=== PATIENT | male | born 1970 | race Caucasian/White ===

== ENCOUNTER → 2017-02-20 | Emergency (ER) | payer BC ==
--- NOTE | 2017-02-20 22:25 | ED NURSING NOTES ---
Clinical Report - Nurses [facility] [address] [place] [address] 02/20/2017 21:29 Patient: YOLANDA OCONNELL TRIAGE Triage time 21:35. Acuity: LEVEL 3. --21:38 Lucy Ying 21:35 02/20/17. BP: 173/86. HR: 93. RR: 18. O2 saturation: 99%. Temp: 98.4 F. Pain level now: 03/05. --21:38 Lucy Ying Chief Complaint: SORE THROAT. --23:01 Damir Ying. Weight: 104.3 kg. Height/Length: 76 inches. BMI: 28. --21:38 Damir Ying. Medications ZyrTEC Allergy Childrens Oral. --21:37 Damir Ying. Allergies No Known Drug Allergy. --21:37 Damir Ying. History Arrived by private vehicle. Historian: patient. Accompanied by family. This started just prior to arrival. ( pt states he was eating meatloaf and felt it get stuck in his throat, pt states he threw up but still feels like it is stuck in his throat, pt states this has happened before). 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 PAST MEDICAL HX: Immunizations: up-to-date. SOCIAL HX: Never smoker. No alcohol use or drug use. No infectious disease exposure. SELF HARM ASSESSMENT: A self harm assessment was performed. The patient answered "no" to the question "Have you recently felt down, depressed, or hopeless?", "Have you noticed less interest or pleasure in doing things?", "Do you have thoughts of harming or killing yourself?", "Are you here because you tried to hurt yourself?", "Have you ever tried to hurt yourself before today?", "Have you recently had thoughts about harming or killing others?" and "Do you have any dangerous items in your possession?". FALL RISK ASSESSMENT: Fall risk assessment completed. No fall risk identified. NUTRITIONAL RISK ASSESSMENT: The nutritional risk assessment revealed no deficiencies. FUNCTIONAL ASSESSMENT: Functional assessment: no impairments noted. LEARNING NEEDS ASSESSMENT: The learning needs assessment revealed no barriers. SKIN INTEGRITY ASSESSMENT: Skin integrity risk assessment completed. No skin integrity risk identified. --21:38 Lucy Ying ADDITIONAL SURGERIES: no known surgeries. Interventions ID band on patient. To treatment room. --21:38 Lucy Ying PHYSICAL ASSESSMENT Ambulatory to room. GENERAL / NEURO / PSYCH: Alert. Oriented X 4. Appears in no acute distress. HEENT: Pupils equal, round and reactive to light. No facial asymmetry noted. Mucous membranes are pink. RESPIRATORY: Respirations not labored. Chest nontender. Breath sounds within normal limits. CVS: Normal sinus rhythm noted. Capillary refill less than 2 seconds. Pulses within normal limits. GI / : Abdomen soft and nontender and normal bowel sounds. SKIN: Skin intact. Skin is warm and dry. Normal skin turgor. --21:39 Lucy Ying NURSING PROGRESS NOTES 21:57 Verbal order obtained for PO fluids per Dr Macdonald. Asked patient to take large drink of sprite tuck chin tight and swallow hard. Patient swallowed with relief and stated that he thinks it is gone and he feels much better. Provider notified. --22:00 McNeha Fernandez, ER Tech1 22:20 Patient reports he feels better, handling secretions, taking PO fluids. --22:25 McNeha Fernandez, ER Tech1. DISPOSITION / DISCHARGE 22:58 02/20/17. BP: deferred. HR: deferred. RR: 18. O2 saturation: 99%. Temp: deferred. Pain level now: 0/10. --22:59 Lucy Ying Locked/Released at 02/20/2017 23:01 by Lucy Ying
--- NOTE | 2017-02-20 22:25 | ED CLINICAL REPORT ---
Clinical Report - Physicians/Mid Levels [facility] [address] [place] [address] 02/20/2017 21:29 Patient: YOLANDA OCONNELL Time Seen: 21:35. Arrived- By private vehicle. Historian- patient. HISTORY OF PRESENT ILLNESS Chief Complaint: FOREIGN BODY SENSATION IN THROAT. This started just prior to arrival and is still present. It was abrupt in onset and has been constant. Pain described as moderate. The patient has had a mild sore throat with inability to swallow. No toothache. (Pt states he was eating meatloaf and felt it get stuck in his throat, pt states he threw up but still feels like it is stuck in his throat, pt states this has happened before). Similar symptoms previously: Milder. ( States this has happened in the past, but has always resolved spontaneously). Recent medical care: Not recently seen/assessed. REVIEW OF SYSTEMS No fever, cough, difficulty breathing, chest pain or nausea. No diarrhea, abdominal pain, difficulty with urination, headache or joint pain. No skin rash. He has had vomiting. The vomiting has occurred only once. No blood-tinged emesis or frankly bloody emesis. All systems otherwise negative, except as recorded above. PAST HISTORY See nurses notes. History of headaches. Environmental allergies. Surgeries: No history of previous surgery. Additional Surgeries: no known surgeries. Medications: ZyrTEC Allergy Childrens Oral. Allergies: No Known Drug Allergy. SOCIAL HISTORY Never smoker. No alcohol use or drug use. ADDITIONAL NOTES The nursing notes have been reviewed. PHYSICAL EXAM Vital Signs: 02/20/2017 21:35 BP: 173/86. HR: 93. RR: 18. O2 saturation: 99%. Temp: 98.4 F. Pain level now: 4/10. Appearance: Alert. No acute distress. Anxious. Patient in moderate distress. Head: Normal external inspection. Eyes: Conjunctivae and eyelids normal. ENT: Ears normal. Nose normal. Pharynx normal. Lips normal. Gums normal. No trismus present. Uvula midline. Neck: Normal inspection. Trachea midline. No adenopathy. Neck supple. CVS: Normal heart rate and rhythm. Heart sounds normal. Pulses normal. Respiratory: No respiratory distress. Breath sounds normal. Abdomen: Soft and nontender. Skin: Normal skin color. No rash. Normal skin turgor. Extremities: Extremities exhibit normal ROM. Extremities nontender. Neuro: Oriented X 3. No motor deficit. LABS, X-RAYS, AND EKG Pulse Oximetry: 02/20/2017 21:35 O2 saturation: 99%. (FIO2 - room air). Interpretation: normal. PROGRESS AND PROCEDURES Course of Care: Pt given carbonated beverage with neck in flexed position with good result. Able to swallow and felt object "move down" Pt likely has web and / or stricture and will need scope (vs UGI) to evaluate this better 22:22 02/20/17. Patient is stable. The patient's symptoms are now gone. Physical exam findings are improved. Patient/family counseled. Old ED records reviewed. Disposition: Discharged. Condition: stable and improved. CLINICAL IMPRESSION Esophageal foreign body: food- removed. Essential hypertension. No esophageal rupture. INSTRUCTIONS Do not work tomorrow. Drink plenty of fluids. (Please chew your food very well and consider eating only soft foods until you have a scope procedure). Warnings: Further evaluation is necessary in order to conduct further tests (You will likely need an endoscopy to assess your esophagus for stricture / web). It is very important to follow up with a physician. GENERAL WARNINGS: Return or contact your physician immediately if your condition worsens or changes unexpectedly, if not improving as expected, or if other problems arise. Your Current Medications: CONTINUE TAKING THE FOLLOWING MEDICATIONS: ZyrTEC Allergy Childrens Oral. Follow-up: Follow up with your doctor tomorrow. Screening today revealed the patient's blood pressure to be in the hypertensive range. The patient should follow up with a primary care provider for blood pressure management. Follow-up with: Clarke Young MD, General Surgeon, , [facility], [address] [place] [address] [address], [place], [phone] Follow up in about two days. Call for the next available appointment. Reason for referral: Call tommorow for appointment time. (Electronically signed by Clarke Macdonald DO 02/21/2017 0:42)
--- NOTE | 2017-02-20 22:25 | ED CLINICAL REPORT ---
Clinical Report - Physicians/Mid Levels [facility] [address] [place] [address] 02/20/2017 21:29 Patient: YOLANDA OCONNELL Time Seen: 21:35. Arrived- By private vehicle. Historian- patient. HISTORY OF PRESENT ILLNESS Chief Complaint: FOREIGN BODY SENSATION IN THROAT. This started just prior to arrival and is still present. It was abrupt in onset and has been constant. Pain described as moderate. The patient has had a mild sore throat with inability to swallow. No toothache. (Pt states he was eating meatloaf and felt it get stuck in his throat, pt states he threw up but still feels like it is stuck in his throat, pt states this has happened before). Similar symptoms previously: Milder. ( States this has happened in the past, but has always resolved spontaneously). Recent medical care: Not recently seen/assessed. REVIEW OF SYSTEMS No fever, cough, difficulty breathing, chest pain or nausea. No diarrhea, abdominal pain, difficulty with urination, headache or joint pain. No skin rash. He has had vomiting. The vomiting has occurred only once. No blood-tinged emesis or frankly bloody emesis. All systems otherwise negative, except as recorded above. PAST HISTORY See nurses notes. History of headaches. Environmental allergies. Surgeries: No history of previous surgery. Additional Surgeries: no known surgeries. Medications: ZyrTEC Allergy Childrens Oral. Allergies: No Known Drug Allergy. SOCIAL HISTORY Never smoker. No alcohol use or drug use. ADDITIONAL NOTES The nursing notes have been reviewed. PHYSICAL EXAM Vital Signs: 02/20/2017 21:35 BP: 173/86. HR: 93. RR: 18. O2 saturation: 99%. Temp: 98.4 F. Pain level now: 4/10. Appearance: Alert. No acute distress. Anxious. Patient in moderate distress. Head: Normal external inspection. Eyes: Conjunctivae and eyelids normal. ENT: Ears normal. Nose normal. Pharynx normal. Lips normal. Gums normal. No trismus present. Uvula midline. Neck: Normal inspection. Trachea midline. No adenopathy. Neck supple. CVS: Normal heart rate and rhythm. Heart sounds normal. Pulses normal. Respiratory: No respiratory distress. Breath sounds normal. Abdomen: Soft and nontender. Skin: Normal skin color. No rash. Normal skin turgor. Extremities: Extremities exhibit normal ROM. Extremities nontender. Neuro: Oriented X 3. No motor deficit. LABS, X-RAYS, AND EKG Pulse Oximetry: 02/20/2017 21:35 O2 saturation: 99%. (FIO2 - room air). Interpretation: normal. PROGRESS AND PROCEDURES Course of Care: Pt given carbonated beverage with neck in flexed position with good result. Able to swallow and felt object "move down" Pt likely has web and / or stricture and will need scope (vs UGI) to evaluate this better 22:22 02/20/17. Patient is stable. The patient's symptoms are now gone. Physical exam findings are improved. Patient/family counseled. Old ED records reviewed. Disposition: Discharged. Condition: stable and improved. CLINICAL IMPRESSION Esophageal foreign body: food- removed. Essential hypertension. No esophageal rupture. INSTRUCTIONS Do not work tomorrow. Drink plenty of fluids. (Please chew your food very well and consider eating only soft foods until you have a scope procedure). Warnings: Further evaluation is necessary in order to conduct further tests (You will likely need an endoscopy to assess your esophagus for stricture / web). It is very important to follow up with a physician. GENERAL WARNINGS: Return or contact your physician immediately if your condition worsens or changes unexpectedly, if not improving as expected, or if other problems arise. Your Current Medications: CONTINUE TAKING THE FOLLOWING MEDICATIONS: ZyrTEC Allergy Childrens Oral. Follow-up: Follow up with your doctor tomorrow. Screening today revealed the patient's blood pressure to be in the hypertensive range. The patient should follow up with a primary care provider for blood pressure management. Follow-up with: Clarke Young MD, General Surgeon, , [facility], [address] [place] [address], [place], [id number] Follow up in about two days. Call for the next available appointment. Reason for referral: Call tommorow for appointment time. (Electronically signed by Clarke Macdonald DO 02/21/2017 0:42)
--- NOTE | 2017-02-20 22:25 | ED NURSING NOTES ---
Clinical Report - Nurses [facility] [address] [place] [address] 02/20/2017 21:29 Patient: YOLANDA OCONNELL TRIAGE Triage time 21:35. Acuity: LEVEL 3. --21:38 Lucy Ying 21:35 02/20/17. BP: 173/86. HR: 93. RR: 18. O2 saturation: 99%. Temp: 98.4 F. Pain level now: 03/05. --21:38 Lucy Ying Chief Complaint: SORE THROAT. --23:01 Damir Ying. Weight: 104.3 kg. Height/Length: 76 inches. BMI: 28. --21:38 Damir Ying. Medications ZyrTEC Allergy Childrens Oral. --21:37 Damir Ying. Allergies No Known Drug Allergy. --21:37 Damir Ying. History Arrived by private vehicle. Historian: patient. Accompanied by family. This started just prior to arrival. ( pt states he was eating meatloaf and felt it get stuck in his throat, pt states he threw up but still feels like it is stuck in his throat, pt states this has happened before). 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 PAST MEDICAL HX: Immunizations: up-to-date. SOCIAL HX: Never smoker. No alcohol use or drug use. No infectious disease exposure. SELF HARM ASSESSMENT: A self harm assessment was performed. The patient answered "no" to the question "Have you recently felt down, depressed, or hopeless?", "Have you noticed less interest or pleasure in doing things?", "Do you have thoughts of harming or killing yourself?", "Are you here because you tried to hurt yourself?", "Have you ever tried to hurt yourself before today?", "Have you recently had thoughts about harming or killing others?" and "Do you have any dangerous items in your possession?". FALL RISK ASSESSMENT: Fall risk assessment completed. No fall risk identified. NUTRITIONAL RISK ASSESSMENT: The nutritional risk assessment revealed no deficiencies. FUNCTIONAL ASSESSMENT: Functional assessment: no impairments noted. LEARNING NEEDS ASSESSMENT: The learning needs assessment revealed no barriers. SKIN INTEGRITY ASSESSMENT: Skin integrity risk assessment completed. No skin integrity risk identified. --21:38 Lucy Ying ADDITIONAL SURGERIES: no known surgeries. Interventions ID band on patient. To treatment room. --21:38 Lucy Ying PHYSICAL ASSESSMENT Ambulatory to room. GENERAL / NEURO / PSYCH: Alert. Oriented X 4. Appears in no acute distress. HEENT: Pupils equal, round and reactive to light. No facial asymmetry noted. Mucous membranes are pink. RESPIRATORY: Respirations not labored. Chest nontender. Breath sounds within normal limits. CVS: Normal sinus rhythm noted. Capillary refill less than 2 seconds. Pulses within normal limits. GI / : Abdomen soft and nontender and normal bowel sounds. SKIN: Skin intact. Skin is warm and dry. Normal skin turgor. --21:39 Lucy Ying NURSING PROGRESS NOTES 21:57 Verbal order obtained for PO fluids per Dr Macdonald. Asked patient to take large drink of sprite tuck chin tight and swallow hard. Patient swallowed with relief and stated that he thinks it is gone and he feels much better. Provider notified. --22:00 McNeha Fernandez, ER Tech1 22:20 Patient reports he feels better, handling secretions, taking PO fluids. --22:25 McNeha Fernandez, ER Tech1. DISPOSITION / DISCHARGE 22:58 02/20/17. BP: deferred. HR: deferred. RR: 18. O2 saturation: 99%. Temp: deferred. Pain level now: 0/10. --22:59 Lucy Ying Locked/Released at 02/20/2017 23:01 by Lucy Ying
--- NOTE | 2017-02-21 00:42 | ED MAR SUMMARY ---
..... Medication Administration Record [facility] [address] [place], [place] [id number] Patient: YOLANDA OCONNELL Visit ID: [id number] 46y, M Weight: 104.3 kg Height/Length: 76 in BMI: 28 ALLERGIES: No Known Drug Allergy
--- NOTE | 2017-02-21 00:42 | ED MED RECONCILIATION SUMMARY ---
Patient: YOLANDA OCONNELL Medication Reconciliation Report [facility] VisitID: [id number] [address] [place] [place] [address] 46y, M Registration Date/Time: 02/20/2017 Weight: 104.3 kg Height/Length: 76 in. BMI: 28.0 ALLERGIES: No Known Drug Allergy The patient's Home Medications are listed below: CONTINUE TAKING THE FOLLOWING MEDICATIONS: ZyrTEC Allergy Childrens Oral The source(s) of the original Home Medication information: Not obtained. The following Medications were given to the patient in the Emergency Department: None. The following Medications were prescribed to the patient: None.
--- NOTE | 2017-02-21 00:42 | ED MAR SUMMARY ---
..... Medication Administration Record [facility] [address], [place] [id number] Patient: YOLANDA OCONNELL Visit ID: [id number] 46y, M Weight: 104.3 kg Height/Length: 76 in BMI: 28 ALLERGIES: No Known Drug Allergy
--- NOTE | 2017-02-21 00:42 | ED MED RECONCILIATION SUMMARY ---
Patient: YOLANDA OCONNELL Medication Reconciliation Report [facility] VisitID: [id number] [address] [place] [place] [address] 46y, M Registration Date/Time: 02/20/2017 Weight: 104.3 kg Height/Length: 76 in. BMI: 28.0 ALLERGIES: No Known Drug Allergy The patient's Home Medications are listed below: CONTINUE TAKING THE FOLLOWING MEDICATIONS: ZyrTEC Allergy Childrens Oral The source(s) of the original Home Medication information: Not obtained. The following Medications were given to the patient in the Emergency Department: None. The following Medications were prescribed to the patient: None.
--- NOTE | 2017-02-21 00:42 | ED DISCHARGE INSTRUCTIONS ---
Patient: YOLANDA OCONNELL General Instructions [facility] VisitID: [id number] [place] [address] 46y, M Registration Date/Time: 02/20/2017 Esophageal foreign body: food- removed. Essential hypertension. No esophageal rupture. INSTRUCTIONS Do not work tomorrow. Drink plenty of fluids. (Please chew your food very well and consider eating only soft foods until you have a scope procedure). Warnings: Further evaluation is necessary in order to conduct further tests (You will likely need an endoscopy to assess your esophagus for stricture / web). It is very important to follow up with a physician. GENERAL WARNINGS: Return or contact your physician immediately if your condition worsens or changes unexpectedly, if not improving as expected, or if other problems arise. Your Current Medications: CONTINUE TAKING THE FOLLOWING MEDICATIONS: ZyrTEC Allergy Childrens Oral. Follow-up: Follow up with your doctor tomorrow. Screening today revealed the patient's blood pressure to be in the hypertensive range. The patient should follow up with a primary care provider for blood pressure management. Follow-up with: Clarke Young MD, General Surgeon, , [facility], [address] [id number] Follow up in about two days. Call for the next available appointment. Reason for referral: Call tommorow for appointment time. ADDITIONAL INFORMATION High Blood Pressure -- To Be Confirmed [No Tx] Your blood pressure was higher today than normal. Sometimes anxiety or pain can cause a temporary rise in blood pressure that later returns to normal. If your blood pressure is high on one measurement, this does not mean that you have hypertension (a chronic illness). However, you must have your blood pressure measured again within the next few days to find out if its still high. A normal blood pressure is 120/80 or less. The first (top) number is the "systolic" pressure. The second (bottom) number is the "diastolic" pressure. Hypertension exists when either the top number is 140 or higher, OR the bottom number is 90 or higher on repeated measurements. Blood pressure in the range of 120-140 (systolic) or 80-89 (diastolic) is considered "pre-hypertension". This means your are at risk for getting hypertension. You should have regular blood pressure checks to be sure your blood pressure is not rising. Home Care: Measure your blood pressure on 3 different days and write down the results. This can be done at your doctor's office or this facility. Some pharmacies and grocery stores offer automated blood pressure machines for your use. Follow Up: If your blood pressure is "high" (over 120/80) on 2 out of 3 days, you will need to follow up with your doctor for further evaluation and treatment. DO NOT PUT THIS OFF! Untreated high blood pressure increases the risk for heart attack, also known as acute myocardial infarction, or AMI, and stroke. It is a treatable condition. Get Prompt Medical Attention if any of the following occur: Chest pain or shortness of breath Severe headache Throbbing or rushing sound in the ears Nosebleed Sudden severe abdominal pain Extreme drowsiness, confusion or fainting Dizziness or vertigo (dizziness with spinning sensation) Weakness of an arm or leg or one side of the face Difficulty with speech or vision Esophageal Blockage, Resolved The esophagus is the passage that carries food from the mouth to the stomach. You had a blockage in the esophagus. This can happen after swallowing a large piece of food, taking a large pill or swallowing foreign objects. If this is a recurring problem, it can be a sign of disease in the esophagus such as inflammation or scarring. If you did not require a special procedure (endoscopy) today to treat your condition, further testing will be needed to evaluate this problem. The blockage has cleared. You should be able to swallow normally again. Home Care: For the next 24 hours you may drink liquids and eat soft foods. If you were given IV medicine today for an endoscopy procedure, you may be drowsy for the next 4-[address] or operate dangerous equipment until you feel alert again. If your blockage was from food, be sure to cut solid food into small pieces before putting it into your mouth. Chew all foods well before swallowing. If your blockage was from an azyi-oxr-hccdocs pill (such as a vitamin), avoid this size pill in the future. If it was from a prescription medicine, ask your doctor for another type of medicine to replace this. Follow Up with your doctor as advised. If you have further problems, contact your doctor or this facility for advice. If this is a recurring problem, contact your doctor to schedule an endoscopy (to look inside the esophagus with a small camera on the end of a tube). Get Prompt Medical Attention if any of the following occur: Chest pain or shortness of breath Unable to swallow Vomiting blood (red or black) Blood in your stool (dark red or black color) Fever of 100.4F (38C) or higher, or as directed by your healthcare provider You have been given the following additional information: Hypertension, To Be Confirmed Esophageal Foreign Body, Resolved Do not work tomorrow. (Electronically signed by Clarke aMcdonald DO 02/21/2017 0:42)
--- NOTE | 2017-02-21 00:42 | ED DISCHARGE INSTRUCTIONS ---
Patient: YOLANDA OCONNELL General Instructions [facility] VisitID: [id number] [place] [address] 46y, M Registration Date/Time: 02/20/2017 Esophageal foreign body: food- removed. Essential hypertension. No esophageal rupture. INSTRUCTIONS Do not work tomorrow. Drink plenty of fluids. (Please chew your food very well and consider eating only soft foods until you have a scope procedure). Warnings: Further evaluation is necessary in order to conduct further tests (You will likely need an endoscopy to assess your esophagus for stricture / web). It is very important to follow up with a physician. GENERAL WARNINGS: Return or contact your physician immediately if your condition worsens or changes unexpectedly, if not improving as expected, or if other problems arise. Your Current Medications: CONTINUE TAKING THE FOLLOWING MEDICATIONS: ZyrTEC Allergy Childrens Oral. Follow-up: Follow up with your doctor tomorrow. Screening today revealed the patient's blood pressure to be in the hypertensive range. The patient should follow up with a primary care provider for blood pressure management. Follow-up with: Clarke Young MD, General Surgeon, , [facility], [address] [id number] Follow up in about two days. Call for the next available appointment. Reason for referral: Call tommorow for appointment time. ADDITIONAL INFORMATION High Blood Pressure -- To Be Confirmed [No Tx] Your blood pressure was higher today than normal. Sometimes anxiety or pain can cause a temporary rise in blood pressure that later returns to normal. If your blood pressure is high on one measurement, this does not mean that you have hypertension (a chronic illness). However, you must have your blood pressure measured again within the next few days to find out if its still high. A normal blood pressure is 120/80 or less. The first (top) number is the "systolic" pressure. The second (bottom) number is the "diastolic" pressure. Hypertension exists when either the top number is 140 or higher, OR the bottom number is 90 or higher on repeated measurements. Blood pressure in the range of 120-140 (systolic) or 80-89 (diastolic) is considered "pre-hypertension". This means your are at risk for getting hypertension. You should have regular blood pressure checks to be sure your blood pressure is not rising. Home Care: Measure your blood pressure on 3 different days and write down the results. This can be done at your doctor's office or this facility. Some pharmacies and grocery stores offer automated blood pressure machines for your use. Follow Up: If your blood pressure is "high" (over 120/80) on 2 out of 3 days, you will need to follow up with your doctor for further evaluation and treatment. DO NOT PUT THIS OFF! Untreated high blood pressure increases the risk for heart attack, also known as acute myocardial infarction, or AMI, and stroke. It is a treatable condition. Get Prompt Medical Attention if any of the following occur: Chest pain or shortness of breath Severe headache Throbbing or rushing sound in the ears Nosebleed Sudden severe abdominal pain Extreme drowsiness, confusion or fainting Dizziness or vertigo (dizziness with spinning sensation) Weakness of an arm or leg or one side of the face Difficulty with speech or vision Esophageal Blockage, Resolved The esophagus is the passage that carries food from the mouth to the stomach. You had a blockage in the esophagus. This can happen after swallowing a large piece of food, taking a large pill or swallowing foreign objects. If this is a recurring problem, it can be a sign of disease in the esophagus such as inflammation or scarring. If you did not require a special procedure (endoscopy) today to treat your condition, further testing will be needed to evaluate this problem. The blockage has cleared. You should be able to swallow normally again. Home Care: For the next 24 hours you may drink liquids and eat soft foods. If you were given IV medicine today for an endoscopy procedure, you may be drowsy for the next 4-[address] or operate dangerous equipment until you feel alert again. If your blockage was from food, be sure to cut solid food into small pieces before putting it into your mouth. Chew all foods well before swallowing. If your blockage was from an [id number] pill (such as a vitamin), avoid this size pill in the future. If it was from a prescription medicine, ask your doctor for another type of medicine to replace this. Follow Up with your doctor as advised. If you have further problems, contact your doctor or this facility for advice. If this is a recurring problem, contact your doctor to schedule an endoscopy (to look inside the esophagus with a small camera on the end of a tube). Get Prompt Medical Attention if any of the following occur: Chest pain or shortness of breath Unable to swallow Vomiting blood (red or black) Blood in your stool (dark red or black color) Fever of 100.4F (38C) or higher, or as directed by your healthcare provider You have been given the following additional information: Hypertension, To Be Confirmed Esophageal Foreign Body, Resolved Do not work tomorrow. (Electronically signed by Clarke Macdonald DO 02/21/2017 0:42)
== END ==
LOC: ED SRH 21:28
DX: T18.128A Food in esophagus causing other injury, initial encounter (principal); I10 Essential (primary) hypertension; Y93.9 Activity, unspecified; Y92.9 Unspecified place or not applicable; Y99.9 Unspecified external cause status; X58.XXXA Exposure to other specified factors, initial encounter